=== PATIENT | male | born 1980 | race Caucasian/White ===

== ENCOUNTER 2024-01-26 17:22 | Inpatient (IN) | payer OTHER ==
[~2024-01-26] VITALS: Ht 182.9 cm; Wt 108.9 kg
[2024-01-26 17:50] VITALS: BP 115/63; PULSE 108; RESP 20; TEMP 98.3; O2SAT 90
[2024-01-26] MEDS ORDERED: LORazepam 2 MG/ML VIAL ONE (18:17)
[2024-01-26] MEDS: NACL 0.9% 2,000 ML IV ONE (18:27)
[2024-01-26 18:36] LABS: BASOPHILS # (AUTO) 0.1 K/uL (0.00-0.22); BASOPHILS % (AUTO) 0.7 % (0.0-2.0); EOSINOPHILS # (AUTO) 0.4 K/uL (0-0.4); EOSINOPHILS % (AUTO) 4.3 % (0.0-4.0); HEMATOCRIT 46.9 % (36-52); HEMOGLOBIN 15.4 g/dL (12.0-18.0); LYMPHOCYTES # (AUTO) 3.3 K/uL (2.0-11.5); LYMPHOCYTES % (AUTO) 34.9 % (20.5-51.1); MEAN CORPUSCULAR HEMOGLOBIN 29 pg (27-31); MEAN CORPUSCULAR HGB CONC 33 g/dL (33-37); MEAN CORPUSCULAR VOLUME 88.7 fL (80-94); MONOCYTES # (AUTO) 0.4 K/uL (0.8-1.0); MONOCYTES % (AUTO) 4.5 % (1.7-9.3); NEUTROPHILS # (AUTO) 5.3 K/uL (1.8-7.7); NEUTROPHILS % (AUTO) 55.6 % (42.2-75.2); PLATELET COUNT (AUTO) 200 K/uL (140-450); RED BLOOD CELL COUNT(AUTO) 5.28 MIL/uL (4.20-6.10); RED CELL DISTRIBUTION WIDTH 14.9 % (11.6-13.7); WHITE BLOOD COUNT (AUTO) 9.5 K/uL (4.8-10.8)
[2024-01-26] MEDS: THIAMINE 200 MG/2 ML VIAL IV ONE (18:39)
[2024-01-26] MEDS: HALOPERIDOL IM 5 MG/ML VIAL IM ONE (18:40)
[2024-01-26 19:00] LABS: ANION GAP 16.1 (8-16); CALCIUM 8.1 mg/dL (8.5-10.1); CARBON DIOXIDE 20.4 mmol/L (21-32); CREATININE 1.6 mg/dL (0.6-1.3); POTASSIUM 4.5 mmol/L (3.5-5.1)
[2024-01-26 19:15] LABS: AMPHETAMINE, URINE NEGATIVE ng/ml (NEG <=1000); BARBITURATE, URINE NEGATIVE ng/ml (NEG <=200); BENZODIAZEPINE, URINE NEGATIVE ng/mL (NEG <=200); CANNABINOID, URINE NEGATIVE ng/mL (NEG <=50); COCAINE, URINE NEGATIVE ng/mL (NEG <=300); OPIATE, URINE NEGATIVE ng/mL (NEG <=2000); PHENCYCLIDINE SCREEN,URINE NEGATIVE ng/mL (NEG <=25)
[2024-01-26 19:44] LABS: ALANINE AMINOTRANSFERASE 25 U/L (12-78); ALBUMIN 3.1 g/dL (3.4-5.0); ALCOHOL, BLOOD 299 mg/dL (<10); ALKALINE PHOSPHATASE 80 U/L (50-136); ASPARTATE AMINOTRANSFERASE 21 U/L (15-37); LIPASE 39 U/L (16-77)
[2024-01-26 19:53] LABS: ACETAMINOPHEN < 0.5 ug/ml (10-30); SALICYLATE < 2.8 mg/dL (2.8-20.0)
[2024-01-26] MEDS: NACL 0.9% 1,000 ML IV ONE (19:54)
[2024-01-26 19:55] LABS: TOTAL BILIRUBIN 0.2 mg/dL (0.0-1.0)
[2024-01-27] VITALS (8 sets, daily range): BP systolic 117–144; BP diastolic 67–95; PULSE 68–94; RESP 14–20; TEMP 97.2–98.3; O2SAT 96–99
[2024-01-27] MEDS ORDERED: PIPERACILLIN/TAZOBACTAM 3.375 GM VIAL IV ONE (01:40)
[2024-01-27] MEDS: PIPERACILLIN/TAZOBACTAM 3.375 GM in DEXTROSE 5% 50 ML IV ONE (01:49)
[2024-01-27] MEDS ORDERED: ONDANSETRON 4 MG ODT PO PRN (02:20)
[2024-01-27] MEDS ORDERED: LORazepam 2 MG/ML VIAL IVP PRN (02:20)
[2024-01-27 02:21] LABS: LACTIC ACID 2.7 mmol/L (0.4-2.0)
[2024-01-27] MEDS: THIAMINE 200 MG/2 ML VIAL IM ONE (05:05)
[2024-01-27] MEDS ORDERED: NACL 0.9% 1,000 ML IV SCH (07:55)
[2024-01-27] MEDS ORDERED: PIPERACILLIN/TAZOBACTAM 4.5 GM in DEXTROSE 5% 100 ML IV SCH ×2 (08:00→12:00)
[2024-01-27] MEDS: AZITHROMYCIN 250 MG TAB PO ONE (08:25)
[2024-01-27] MEDS: TAMSULOSIN 0.4 MG CAP PO SCH (09:57)
[2024-01-27] MEDS ORDERED: ALBUTEROL SULFATE/IPRATROPIU 3 ML SOL IH PRN (11:50)
[2024-01-27] MEDS: levoFLOXacin 750 MG TAB PO SCH (11:54)
[2024-01-27] MEDS: guaiFENesin 600 MG TABER PO SCH (21:00)
[2024-01-28 07:40] VITALS: O2SAT 96
[2024-01-28 08:00] VITALS: BP 142/87; PULSE 67; RESP 20; TEMP 97.3; O2SAT 97
[2024-01-28] MEDS: AZITHROMYCIN 250 MG TAB PO SCH (08:09)
[2024-01-28] MEDS ORDERED: AMOX1TER15 PO (10:49)
[2024-01-28 10:59] VITALS: BP 142/87; PULSE 67; RESP 20; TEMP 97.3
== END 2024-01-28 11:25 | disposition home or self-care (01) | DRG 137 ==
LOC: MED 17:22 → EDBD 17:22 → MTU 01-27 02:32
PROVIDERS: ADMIT Student in an Organized Health Care Education/Training Program; ATTEND Student in an Organized Health Care Education/Training Program
DX: J69.0 Pneumonitis due to inhalation of food and vomit (principal); N17.0 Acute kidney failure with tubular necrosis; G92.8 Other toxic encephalopathy; E44.0 Moderate protein-calorie malnutrition; J15.69 Pneumonia due to other Gram-negative bacteria; T51.91XA Toxic effect of unspecified alcohol, accidental (unintentional), initial encounter; E87.20 Acidosis, unspecified; E87.1 Hypo-osmolality and hyponatremia; F10.129 Alcohol abuse with intoxication, unspecified; N18.9 Chronic kidney disease, unspecified; N40.0 Benign prostatic hyperplasia without lower urinary tract symptoms; Z90.49 Acquired absence of other specified parts of digestive tract; Z87.891 Personal history of nicotine dependence; Z68.35 Body mass index [BMI] 35.0-35.9, adult; F19.10 Other psychoactive substance abuse, uncomplicated
CPT/HCPCS: 36415; 70450; 71045; 72125; 80048; 80076; 80305; 83605; 83690; 84484; 85025; 87040; 93005; G0480; G0482; J1630; J2060; J2543; J3411; J7060; Q0092